=== PATIENT | female | born 1960 | race Caucasian/White ===

== ENCOUNTER 2024-07-02 06:21 | Day surgery (SDC) | payer MEDICARE, SELFPAY ==
[2024-07-02] VITALS (24 sets, daily range): BP systolic 75–128; BP diastolic 47–80; PULSE 52–80; RESP 12–18; TEMP 35.1–37; O2SAT 92–98; BMI 25.9
[2024-07-02] MEDS: ACETAMINOPHEN 500 MG TABLET 1000 MG PO ×3 (07:00→19:18)
[2024-07-02] MEDS: OXYCODONE (CR) 10 MG TAB.ER.12H PO (07:00)
[2024-07-02] MEDS: LACTATED RINGERS 1000 ML 1,000 ML 100 ML IV (07:00)
--- NOTE | 2024-07-02 07:26 | W.PM.H&PU ---
History & Physical Update History & Physical Update H&P Reviewed and patient assessed: No changes noted
--- NOTE | 2024-07-02 07:38 | SUR.PREOP ---
TIME?OUT:?4300 PT/Ani Galindo RN/Dr. Marcelino MDA?VERIFICATION?OF?SURGICAL?SITE right hip,?PROCEDURE,?AND?CONSENT OBTAINED?PRIOR?TO?INVASIVE?PROCEDURE.
[2024-07-02] MEDS: fentaNYL 100 MCG/2 ML inj IVP (07:41)
[2024-07-02] MEDS: MIDAZOLAM HCL 1 MG/ML inj IVP (07:41)
--- NOTE | 2024-07-02 07:45 | CRLHL7_ITS ---
For Patients: As a result of the Cures Act, medical imaging exams and procedure reports are released immediately into your electronic medical record. You may view this report before your referring provider. If you have questions, please contact your health care provider. Indication: Hip replacement surgery Technique: AP hip fluoroscopic images. Fluoroscopy time 48.3 seconds. Findings/Impression: Hardware from a right total hip arthroplasty is in satisfactory position. Dictated by Puneet Adams MD @ 07/02/2024 9:53:40 AM (Electronically Signed)
--- NOTE | 2024-07-02 08:23 | CRLHL7_ITS ---
For Patients: As a result of the Cures Act, medical imaging exams and procedure reports are released immediately into your electronic medical record. You may view this report before your referring provider. If you have questions, please contact your health care provider. Indication: Postop Technique: AP hip centered pelvis and lateral view right hip Findings/Impression: Hardware from a right total hip arthroplasty is in satisfactory position. Bone alignment is normal. No sign of acute fracture. Postop changes are within normal limits. Dictated by Puneet Adams MD @ 07/02/2024 11:16:51 AM (Electronically Signed)
[2024-07-02] MEDS: CEFAZOLIN 2 GM in 0.9 % SODIUM CHLORIDE Mini-bag 100 ML IVPB (08:24)
[2024-07-02] MEDS: TRANEXAMIC ACID 100 MG/ML INJ 1000 MG IV (08:29)
--- NOTE | 2024-07-02 10:27 | P.ANES_ITS ---
Anesthesia Charges Start Date/Time Anesthesia Start Date: 07/02/24 Anesthesia Start Time: 08:00 Stop Date/Time Anesthesia Stop Date: 07/02/24 Anesthesia Stop Time: 10:23 Coding CPT Codes CPT Codes: ANESTH HIP ARTHROPLASTY - 10624 ([id number]) P3 - PATIENT W/SEVERE SYS DISEASE, QK - SECURITIES ATTORNEY 2-4 CNCRNT ANES PROC, QX - USED CAR LOT PORTER SVC W/ MD MED DIRECTION
--- NOTE | 2024-07-02 10:27 | W.ANESCHARGE ---
Anesthesia Charges Start Date/Time Anesthesia Start Date: 07/02/24 Anesthesia Start Time: 08:00 Stop Date/Time Anesthesia Stop Date: 07/02/24 Anesthesia Stop Time: 10:23 Coding CPT Codes CPT Codes: ANESTH HIP ARTHROPLASTY - 27967 ([id number]) P3 - PATIENT W/SEVERE SYS DISEASE, QK - WINDOWS PHONE DEVELOPER 2-4 CNCRNT ANES PROC, QX - TECHNICAL RESEARCH SCIENTIST SVC W/ MD MED DIRECTION
[2024-07-02] MEDS: PHENYLEPHRINE 100 MCG/ML SYRINGE IVP (10:32)
--- NOTE | 2024-07-02 11:13 | P.NB_ITS ---
Nerve Block Nerve Block Time Seen by Provider: 07:44 Date Seen: 07/02/24 Type of block requested by surgeon for post-operative analgesia: ELYSSA/LFCN Side: right Time out performed: Yes Verification of patient name: Yes Verification of date of : Yes Site marking: site marked Name of person performing procedure: Marcelino Continuous monitoring Was continuous monitoring of O2 sat, B/P, quality assurance monitor body, recorded every 15 minutes?: Yes Procedure Checklist: sterile prep, needles and gloves Ultrasound guided. Images saved: Yes Medications given in 5ml increments after negative aspiration: Ropivicaine %: 0.5 mL: 30 Needle gauge: 20 Precedex (mcg): 25 Patient tolerated procedure well: Yes Additional comments: Needle noted below psoas tendon needle noted adjacent to LFCN Block Charges Block Charge (with Pro Fee): Other Periph Nerve Block Use of Ultrasound Machine for Block: Yes- US Guidance/pain block
--- NOTE | 2024-07-02 11:14 | P.ANES_ITS ---
Anesthesia Charges Start Date/Time Anesthesia Start Date: 07/02/24 Anesthesia Start Time: 08:00 Stop Date/Time Anesthesia Stop Date: 07/02/24 Anesthesia Stop Time: 10:23 Coding CPT Codes CPT Codes: ANESTH HIP ARTHROPLASTY - 96679 ([id number]) QK - NET TRAINER 2-4 CNCRNT ANES PROC, QX - MEDICAL SCHEDULER SVC W/ MD MED DIRECTION, P3 - PATIENT W/SEVERE SYS DISEASE
--- NOTE | 2024-07-02 11:14 | W.ANESCHARGE ---
Anesthesia Charges Start Date/Time Anesthesia Start Date: 07/02/24 Anesthesia Start Time: 08:00 Stop Date/Time Anesthesia Stop Date: 07/02/24 Anesthesia Stop Time: 10:23 Coding CPT Codes CPT Codes: ANESTH HIP ARTHROPLASTY - 47023 ([id number]) QK - PONY ROLL FINISHER 2-4 CNCRNT ANES PROC, QX - GROUP SEGMENT CONSULTANT SVC W/ MD MED DIRECTION, P3 - PATIENT W/SEVERE SYS DISEASE
--- NOTE | 2024-07-02 12:02 | SUR.OPER ---
post surgical procedure noted bruising on left thigh on the edges where cautery pad was placed. PA and charge nurse notified.
--- NOTE | 2024-07-02 12:16 | PM.IMCN1 ---
Date of Consult Patient: Other Consult date: 07/02/24 Requesting Physician: Orthopedics Primary Care Provider: Not a Local Provider Consult Narrative Narrative: Micaela De La Garza is a 63 year old female with osteoarthritis of the hip, fibromyalgia, emphysema, secondary hyperparathyroidism, obstructive sleep apnea admitted in [facility] for right total hip arthroplasty. Procedure performed by Dr. Price. No operative complications. Postoperatively she reports doing well. No significant pain. No nausea. Preoperatively she said she was doing well. No new recent problems illnesses or injuries. She reports ongoing chronic generalized pain which is been diagnosed by alborn as fibromyalgia. She has ongoing evaluation treatment of that. She has sleep apnea but finds she sleeps better without CPAP. She has emphysema from cigarette smoking but has found inhaler therapy to be of no benefit. She quit smoking November 2023 She has a history of kidney stones that are probably related to secondary renal hyperparathyroidism. She is on no treatment for that. No previous history of problems with surgery, anesthesia, bleeding, thrombophilia, infection. [facility] Medical History (Updated 07/02/24 @ 12:55 by Reno Salcedo MD) Hx of renal calculi ?Z87.442 - Personal history of urinary calculi (ICD-10) TIA (transient ischemic attack) ?G45.9 - Transient cerebral ischemic attack, unspecified (ICD-10) Osteopenia ?M85.80 - Other specified disorders of bone density and structure, unspecified site (ICD-10) Osteoporosis ?M81.0 - Age-related osteoporosis without current pathological fracture (ICD-10) Peripheral neuropathy ?G62.9 - Polyneuropathy, unspecified (ICD-10) AIDA (obstructive sleep apnea) ?G47.33 - Obstructive sleep apnea (adult) (pediatric) (ICD-10) Migraine headache ?G43.909 - Migraine, unspecified, not intractable, without status migrainosus (ICD-10) Sudden right hearing loss ?H91.21 - Sudden idiopathic hearing loss, right ear (ICD-10) IBS (irritable bowel syndrome) ?K58.9 - Irritable bowel syndrome, unspecified (ICD-10) Hyperlipidemia ?E78.5 - Hyperlipidemia, unspecified (ICD-10) Chronic fatigue ?R53.82 - Chronic fatigue, unspecified (ICD-10) Dry eye syndrome, bilateral ?H04.123 - Dry eye syndrome of bilateral lacrimal glands (ICD-10) Degeneration macular ?H35.30 - Unspecified macular degeneration (ICD-10) Concussion without loss of consciousness ?S06.0X0A - Concussion without loss of consciousness, initial encounter (ICD-10) COPD (chronic obstructive pulmonary disease) ?J44.9 - Chronic obstructive pulmonary disease, unspecified (ICD-10) Generalized anxiety disorder ?F41.1 - Generalized anxiety disorder (ICD-10) Personal history of alcoholism ?F10.21 - Alcohol dependence, in remission (ICD-10) Colon polyp (03/2017) ?K63.5 - Polyp of colon (ICD-10) Allergic rhinitis ?J30.9 - Allergic rhinitis, unspecified (ICD-10) Hyperparathyroidism, secondary renal ?N25.81 - Secondary hyperparathyroidism of renal origin (ICD-10) TBI (traumatic brain injury) (1975) ?S06.9XAA - Unspecified intracranial injury with loss of consciousness status unknown, initial encounter (ICD-10) Hearing loss, right ?H91.91 - Unspecified hearing loss, right ear (ICD-10) Hypercalciuria ?R82.994 - Hypercalciuria (ICD-10) Centrilobular emphysema ?J43.2 - Centrilobular emphysema (ICD-10) Sleep apnea ?G47.30 - Sleep apnea, unspecified (ICD-10) Fibromyalgia ?M79.7 - Fibromyalgia (ICD-10) Surgical History (Updated 07/02/24 @ 12:53 by Reno Salcedo MD) S/P total right hip arthroplasty ?Z96.641 - Presence of right artificial hip joint (ICD-10) History of tubal ligation (~1989) ?Z98.51 - Tubal ligation status (ICD-10) History of sinus surgery (1981) ?Z98.890 - Other specified postprocedural states (ICD-10) History of hand surgery (~09/2021) ?Z98.890 - Other specified postprocedural states (ICD-10) History of kidney surgery (~05/2021) ?Z98.890 - Other specified postprocedural states (ICD-10) Family History Maternal Grandfather Stroke Uncle Lung cancer Aunt Breast cancer Maternal Grandmother Pancreatic cancer Diabetes Social History (Updated 07/02/24 @ 12:51 by Reno Salcedo MD) Narrative: She lives in [place] with her . She has 3 or 4 steps to get into her house but then lives on 1 level. She occasionally drinks alcohol. former smoker-quit 12/02/2023. is healthcare power of title attorney. Code status is full. What is your current living situation?: I presently have a place to live Problems where you live: no known problems In the past 12 months, utilities in danger of being shut off: no In past 12 months, lack of transportation kept you from medical appts, meetings, work, or getting things needed for daily living: no In the past 12 mos, have been you worried that your food would run out before you had money to buy more?: never true In the past 12 mos, the food you bought just didn't last and you didn't have money to buy more?: never true Smoking Status: Former smoker What tobacco products do you use: cigarettes Smoking quit date/years: <= 15 years ago Do you use any of these nicotine containing products: None How often do you have a drink containing alcohol: monthly or less How many standard drinks containing alcohol do you have on a typical day: 1 or 2 How often do you have six or more drinks on one occasion: Never AUDIT-C Alcohol total score: 1 Non-prescribed substance use: denies use Caffeine: Yes (1 cup/day) How often does anyone, including family, friends and others, physically hurt you: never How often does anyone, including family, friends and others, insult or talk down to you: never How often does anyone, including family, friends and others, threaten you with harm: never How often does anyone, including family, friends and others, scream or curse at you: never service: No Meds Home Medications and Allergies Home Medications ?Medication ?Instructions ?Recorded ?Confirmed ?Type estradiol 0.01% (0.1 mg/gram) 0.25 appful vaginal 02/21/24 02/21/24 History vaginal cream Allergies Allergy/AdvReac Type Severity Reaction Status Date / Time ciprofloxacin AdvReac Hives Verified 07/02/24 06:37 nitrofurantoin AdvReac Hives Verified 07/02/24 06:37 Exam Narrative: Exam Narrative: She is alert and appears in no distress. She gives her own history. Oropharynx is normal. Neck is supple without mass or adenopathy. Respirations are clear to auscultation. She has somewhat diminished breath sounds. Cardiovascular: S1, S2, regular rate and rhythm. No murmur gallop or rub. Abdomen: Bowel sounds active. Abdomen is soft without tenderness or mass. right Hip is with mild swelling, no bruising or erythema. She has intact pulses and sensation distally. No edema Const: Vital Signs, click to edit/add: Vital Signs - 24 hr 07/02/24 07:16 07/02/24 07:40 07/02/24 07:45 Temperature 97.5 F L Pulse Rate 76 63 72 Respiratory Rate 16 16 14 Blood Pressure 123/80 128/69 101/69 Pulse Oximetry 95 98 97 Oxygen Delivery Me thod Room Air Nasal Cannula Nasal Cannula Oxygen Flow Rate 3 3 07/02/24 07:50 07/02/24 10:18 07/02/24 10:23 Temperature 97.5 F L 97.9 F Pulse Rate 60 57 L 52 L Respiratory Rate 14 14 14 Blood Pressure 86/58 L 82/48 L 77/47 L Pulse Oximetry 92 92 94 Oxygen Delivery Me thod Nasal Cannula Room Air Room Air Oxygen Flow Rate 3 07/02/24 10:28 07/02/24 10:32 07/02/24 10:40 Temperature Pulse Rate 55 L 58 L 58 L Respiratory Rate 14 12 14 Blood Pressure 75/54 L 86/63 L 92/59 L Pulse Oximetry 96 97 97 Oxygen Delivery Me thod Room Air Room Air Room Air Oxygen Flow Rate 07/02/24 10:44 07/02/24 10:50 Temperature Pulse Rate 62 59 L Respiratory Rate 12 12 Blood Pressure 86/59 L 91/58 L Pulse Oximetry 97 97 Oxygen Delivery Me thod Room Air Room Air Oxygen Flow Rate Documenting provider has reviewed patient's vital signs: yes Assessment and Plan Assessment and plan (1) S/P total right hip arthroplasty: Problem comment: Dr. Price, 07/02/2024, no complications. Plan routine postoperative therapy and pain management Status: Acute (2) Osteoarthritis of right hip: Problem comment: moderate-severe Status: Acute (3) Fibromyalgia: Problem comment: Unclear how much pain she is having for this. Not currently on medications for this. Status: Acute (4) Sleep apnea: Problem comment: Does not use CPAP. Will monitor for hypoxia with opioid pain medication Status: Acute (5) Centrilobular emphysema: Problem comment: Currently reports being minimally symptomatic. Evaluate for postoperative respiratory problems. Status: Acute (6) Hypotension: Problem comment: Has had some below blood pressure postoperatively. She receive some phenylephrine and fluids. Currently blood pressure is 90s over 60s. Continue to monitor Status: Acute Plan Patient is admitted the hospital for postoperative management of hip replacement surgery with pain management, therapy, respiratory monitoring with AIDA and emphysema. Total Time Spent Total Time Spent: Total time spent is 45 minutes in review of outside records, coordination of care, discussion with patient and about ongoing management of hip surgery, pain, complications and monitoring managing her chronic medical problems.
[2024-07-02] MEDS: LACTATED RINGERS 500 ML 500 ML IV (13:25)
[2024-07-02 15:04] LABS: Hemoglobin* 11.3 gm/dL (12.0-16.0)
[2024-07-02] MEDS: CEFAZOLIN 1 GM in 0.9 % SODIUM CHLORIDE Mini-bag 100 ML IVPB ×2 (15:15→22:29)
[2024-07-02] MEDS: OXYCODONE 5 MG TABLET PO ×2 (21:02→23:09)
[2024-07-02] MEDS: SENNOSIDES 1 TAB TABLET 2 TAB PO (21:03)
[2024-07-03] MEDS: ACETAMINOPHEN 500 MG TABLET 1000 MG PO ×2 (01:01→07:01)
[2024-07-03 01:04] VITALS: BP 104/65; PULSE 78; RESP 16; TEMP 37.1; O2SAT 95
[2024-07-03] MEDS: hydrOXYzine pamoate 25 MG CAPSULE PO ×2 (01:22→06:45)
[2024-07-03 01:23] VITALS: RESP 16; O2SAT 95
[2024-07-03 04:10] VITALS: BP 103/61; PULSE 87; RESP 16; TEMP 37.1; O2SAT 94
[2024-07-03 06:34] VITALS: BP 119/76; PULSE 80; RESP 18; O2SAT 98
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
[2024-07-03 07:00] VITALS: BP 112/70; PULSE 80; PULSE 82; RESP 16; TEMP 37; O2SAT 93
[2024-07-03 07:26] LABS: Basophils Absolute Auto 0.01 K/uL (0.00-0.30); Basophils Percent Auto 0.1 % (0.0-3.0); Eosinophils Absolute Auto 0.02 K/uL (0.00-0.50); Eosinophils Percent Auto 0.2 % (0.0-7.0); Hematocrit 33.8 % (33.0-51.0); Hemoglobin* 11.1 gm/dL (12.0-16.0); Immature Granulocytes Abs Auto 0.02 K/uL (0.00-0.30); Immature Granulocytes Pct Auto 0.2 %; Lymphocytes Percent Auto 18.3 % (20-44); Mean Corpuscular HGB Conc 33 gm/dL (32-36); Mean Corpuscular Hemoglobin 33 pg (26-34); Mean Corpuscular Volume 99 fL (80-100); Monocytes Percent Auto 9.7 % (0.0-11.0); Neutrophils Absolute Auto 6.55 K/uL (1.7-7.0); Neutrophils Percent Auto 71.5 % (42.0-72.0); Platelet Count* 230 K/uL (140-440); RDW Coefficient of Variation % 12.4 % (11.5-15.5); Red Blood Count 3.42 m/uL (4.00-5.20); White Blood Count* 9.17 K/uL (4.50-11.00)
[2024-07-03 07:28] LABS: Slide Review Reflex No
[2024-07-03 07:42] LABS: Potassium* 4.2 mmol/L (3.6-5.1); Sodium* 134 mmol/L (135-149)
[2024-07-03 07:45] LABS: Blood Urea Nitrogen* 9 mg/dL (7-30); Creatinine* 0.6 mg/dL (0.5-1.5); Est. Creatinine Clearance* 50.47; Estimated Glomerular Filt Rate 100 ml/min
[2024-07-03 07:58] LABS: Troponin I* 0.01 ng/mL (0.01-0.04)
--- NOTE | 2024-07-03 08:38 | P.ORPRC_ITS ---
Procedure Note Date of procedure: 07/02/24 Procedure: PREOPERATIVE DIAGNOSIS: 1. Right hip osteoarthritis, severe, primary POSTOPERATIVE DIAGNOSIS: 1. Right hip osteoarthritis, severe, primary PROCEDURE: 1. Right total hip arthroplasty-anterior approach 2. [id number] - intraoperative fluoroscopy up to 1 hour. SURGEON: Venancio Price MD. MITOCHONDRIAL DISORDERS COUNSELOR: Frankie Rose PA-C; RANDELL Baez - Of note, a skilled bankruptcy legal assistant was critical for this case to aid in patient positioning, tissue retraction, limb manipulation/positioning, and closure. ANESTHESIA: Spinal anesthetic EBL: 200 mL IMPLANTS: DePuy J&J uncemented total hip [place] cup size 52, hole eliminator, +4 neutral liner Actis stem, standard offset, size 4 -2 mm ceramic 36 mm head COMPLICATIONS: None evident INDICATIONS: The patient is a pleasant 63-year-old female who has experienced severe right hip pain and difficulty bearing weight. Workup included x-rays which revealed severe osteoarthrosis in the hip. Given the deformity, the dysfunction, and the pain, as well as the failure of nonoperative management, recommendation was made for surgery. FINDINGS: Full-thickness chondral loss diffusely throughout the femoral head and acetabulum. Perimeter osteophytes around the femoral head/neck junction. Moderate effusion upon entering the joint. Generalized synovitis with erythematous synovium noted. DESCRIPTION OF PROCEDURE: Following a thorough discussion of risks, benefits, and alternatives consent was obtained and the right hip was marked. The patient was brought to the operating room and placed supine on the operating table. Induction of anesthesia was undertaken. 1 g IV Ancef and 1 g tranexamic acid was administered within 1 hr of incision preoperatively. Proper time-out was performed identifying proper patient, site, procedure. The operative extremity was prepped and draped in the appropriate sterile fashion using ChloraPrep after the patient was positioned on the [place] table with head in neutral alignment and all bony prominences well padded. C-arm fluoroscopic imaging was utilized to confirm proper pelvis rotation and position, and to get true AP films of both the contralateral left, and the affected right hip. This is for comparison. A longitudinal incision was made starting approximately 1 cm distal to the ASIS, and 3-4 cm lateral. The incision was extended distally aiming toward the lateral border the patella. Sharp incision through skin and bovie cautery through the subcutaneous tissue allowed identification of the TFL fascia. This was sharply divided, and the fascia bluntly released from the muscle fibers as we dissected medial. Upon coming to the medial border, we were able to retract the TFL laterally, and penetrated the deeper fascia and identify the crossing circumflex vessels. These were ligated/cauterized. The rectus was elevated from the capsule, and retractors placed laterally and medially along the femoral neck to help with visualization of the capsule. We then performed an inverted T capsulotomy. The capsule was tagged for later repair. Retractors were placed inside the capsule. The femoral neck was visualized after releasing medially down to the lesser trochanter, along the saddle laterally, and up onto the acetabulum. The femoral neck cut was made in line with our preoperative templating. The head was removed in a single piece, and sized. We turned our attention to acetabular preparation. Initially, the labrum was resected from around the perimeter, the pulvinar was excised, allowing us to visualize the false wall. We started the reaming with a 43 mm reamer. This was medialized down to the true wall. We then enlarged our reamers sequentially up to one size less than the selected cup size. We trialed at the same size and found it to have an excellent fit. The selected cup was then opened, inserted, and impacted in line with the goal of 40? of abduction, and 20-25? of anteversion. This was confirmed on C-arm fluoroscopic imaging to be in the appropriate/goal position. Once the cup was placed we placed a hole eliminator and a liner consistent with preop planning. Attention was turned to the femoral preparation. The limb was extended, externally rotated, and adducted. The posteromedial capsule was released, as retractors were placed allowing excellent access to the proximal femur. Initially a box maker wood was followed by canal finder followed by various broaches. We broached sequentially up to the size noted above, found it to have excellent rotational control, and trialing various heads and necks, revealed that appropriate neck offset, and the above noted head size provided the grea test stability, and samaritan of length, and offset. C-arm fluoroscopic imaging confirmed position of the stem, as well as leg lengths, which were compared with the pre procedure all fluoroscopic images. Trial implants were removed, the real femoral stem inserted, as was the appropriate head. After reducing, the leg was placed through range of motion and stability was confirmed anterior, posterior, and lateral. A 3 min Betadine soak was then performed, and thorough irrigation with normal saline followed. Closure of the capsule was performed with #1 PDS. Bleeding was confirmed to be controlled at this stage, and the TFL fascia was closed with #0 strata fix. Subcutaneous, and subcuticular closure was performed with 2-0 Vicryl and 4-0 Monocryl, respectively. Dressings were applied, and the patient was awoken from anesthesia and transferred the PACU in stable condition. A skilled bankruptcy legal assistant was critical for this case to aid in patient positioning, tissue retraction, acetabular and proximal femoral exposure, limb manipulation/positioning, dislocation/relocation, patient safety, and closure. PLAN: 1. Weight bear as tolerated operative extremity. 2. 23 hr perioperative antibiotics. 3. Ice. 4. PT/OT consults for ambulation assistance/mobility education. 5. Social work consult for discharge planning. 6. DVT prophylaxis with at SCDs and Xarelto x5 days followed by aspirin for a total of 1 month..
[2024-07-03] MEDS: RIVAROXABAN 10 MG TABLET PO (09:08)
[2024-07-03] MEDS: SENNOSIDES 1 TAB TABLET 2 TAB PO (09:08)
--- NOTE | 2024-07-03 09:42 | P.ORPN_ITS ---
Subjective Subjective Date Seen: 07/03/24 Principal diagnosis: Status postop day 1, right total hip arthroplasty - anterior approach Interval history: Patient reports doing well. Notice some left-sided chest discomfort radiating to her back early this morning. She received workup. Negative for cardiac related issue. Pain resolved on its own, without recurrence. Pain managed with scheduled and PRN medications, ice. DVT prophylaxis: Rivaroxaban, SCDs, walk ing. Denies fevers, chills, aches, N/V, CP, SOB/DAWSON, or lightheadedness. Ortho Exam Narrative Exam Narrative: -Patient appears comfortable in recliner; no apparent acute distress -Alert and oriented times 3 -Operative hip swollen; soft tissues supple; no obvious erythema. Ecchymosis minimal. Warmth appropriate -Surgical dressing clean, dry, intact; no obvious drainage, no erythematous streaking peripheral to the bandage -Bilateral calves soft and supple; no significant swelling, edema, tenderness, erythema, discoloration, warmth, or palpable cords -2+ DP/PT pulses, intact dermatomes and myotomes distally (5/5 strength). No numbness about the lateral femoral cutaneous nerve distribution. Const Vital Signs, click to edit/add: Vital Signs - 24 hr 07/02/24 10:18 07/02/24 10:23 07/02/24 10:28 Temperature 97.9 F Pulse Rate 57 L 52 L 55 L Pulse Rate [Pulse Oximeter] Pulse Rate [Right Dorsalis Pedis] Respiratory Rate 14 14 14 Blood Pressure 82/48 L 77/47 L 75/54 L Blood Pressure [Left Arm] Blood Pressure [Right Arm] Pulse Oximetry 92 94 96 Oxygen Delivery Method Room Air Room Air Room Air 07/02/24 10:32 07/02/24 10:40 07/02/24 10:44 Temperature Pulse Rate 58 L 58 L 62 Pulse Rate [Pulse Oximeter] Pulse Rate [Right Dorsalis Pedis] Respiratory Rate 12 14 12 Blood Pressure 86/63 L 92/59 L 86/59 L Blood Pressure [Left Arm] Blood Pressure [Right Arm] Pulse Oximetry 97 97 97 Oxygen Delivery Method Room Air Room Air Room Air 07/02/24 10:50 07/02/24 11:03 07/02/24 11:03 Temperature 95.2 F L Pulse Rate 59 L 65 Pulse Rate [Pulse Oximeter] Pulse Rate [Right Dorsalis Pedis] Respiratory Rate 12 16 16 Blood Pressure 91/58 L 90/66 Blood Pressure [Left Arm] Blood Pressure [Right Arm] Pulse Oximetry 97 97 97 Oxygen Delivery Method Room Air Room Air Room Air 07/02/24 11:15 07/02/24 11:30 07/02/24 11:45 Temperature 96.2 F L Pulse Rate 62 64 61 Pulse Rate [Pulse Oximeter] Pulse Rate [Right Dorsalis Pedis] Respiratory Rate 16 16 16 Blood Pressure 95/68 94/67 92/69 Blood Pressure [Left Arm] Blood Pressure [Right Arm] Pulse Oximetry 98 96 98 Oxygen Delivery Method Room Air Room Air Room Air 07/02/24 12:00 07/02/24 12:30 07/02/24 13:00 Temperature 96.6 F L 97.0 F L Pulse Rate 66 62 66 Pulse Rate [Pulse Oximeter] Pulse Rate [Right Dorsalis Pedis] Respiratory Rate 16 16 18 Blood Pressure 92/64 91/60 89/62 L Blood Pressure [Left Arm] Blood Pressure [Right Arm] Pulse Oximetry 96 97 98 Oxygen Delivery Method Room Air Room Air Room Air 07/02/24 14:00 07/02/24 15:00 07/02/24 15:00 Temperature 97.3 F L Pulse Rate 65 61 Pulse Rate [Pulse Oximeter] Pulse Rate [Right Dorsalis Pedis] Respiratory Rate 16 16 16 Blood Pressure 92/64 115/50 L Blood Pressure [Left Arm] Blood Pressure [Right Arm] Pulse Oximetry 98 96 96 Oxygen Delivery Method Room Air Room Air Room Air 07/02/24 16:00 07/02/24 17:00 07/02/24 19:00 Temperature 97.5 F L 98.6 F Pulse Rate 67 64 Pulse Rate [Pulse Oximeter] Pulse Rate [Right Dorsalis Pedis] 80 Respiratory Rate 16 16 18 Blood Pressure 107/65 119/75 Blood Pressure [Left Arm] Blood Pressure [Right Arm] 111/62 Pulse Oximetry 95 96 94 Oxygen Delivery Method Room Air Room Air Room Air 07/02/24 23:00 07/03/24 01:04 07/03/24 01:23 Temperature 98.4 F 98.8 F Pulse Rate Pulse Rate [Pulse Oximeter] 74 78 Pulse Rate [Right Dorsalis Pedis] Respiratory Rate 18 16 16 Blood Pressure Blood Pressure [Left Arm] Blood Pressure [Right Arm] 103/58 L 104/65 Pulse Oximetry 96 95 95 Oxygen Delivery Method Room Air Room Air Room Air 07/03/24 04:10 07/03/24 06:34 07/03/24 07:00 Temperature 98.8 F Pulse Rate Pulse Rate [Pulse Oximeter] 87 80 80 Pulse Rate [Right Dorsalis Pedis] Respiratory Rate 16 18 16 Blood Pressure Blood Pressure [Left Arm] Blood Pressure [Right Arm] 103/61 119/76 Pulse Oximetry 94 98 Oxygen Delivery Method Room Air 07/03/24 07:00 07/03/24 07:00 Temperature 98.6 F Pulse Rate Pulse Rate [Pulse Oximeter] 82 Pulse Rate [Right Dorsalis Pedis] Respiratory Rate 16 16 Blood Pressure Blood Pressure [Left Arm] 112/70 Blood Pressure [Right Arm] Pulse Oximetry 93 93 Oxygen Delivery Method Room Air Room Air Assessment and Plan Assessment and plan (1) S/P total right hip arthroplasty: Problem details: Dr. Price, 07/02/2024, no complications. Plan routine postoperative therapy and pain management Status: Acute (2) Osteoarthritis of right hip: Problem details: moderate-severe Status: Acute (3) Fibromyalgia: Problem details: Unclear how much pain she is having for this. Not currently on medications for this. Status: Acute (4) Sleep apnea: Problem details: Does not use CPAP. Will monitor for hypoxia with opioid pain medication Status: Acute (5) Centrilobular emphysema: Problem details: Currently reports being minimally symptomatic. Evaluate for postoperative respiratory problems. Status: Acute (6) Hypotension: Problem details: Has had some below blood pressure postoperatively. She receive some phenylephrine and fluids. Currently blood pressure is 90s over 60s. Continue to monitor Status: Acute Plan - Complete 23 hour perioperative antibiotics. - PT/OT consult for education and assistance. - Social work consult for discharge planning - Prescribed analgesics as needed - DVT prophylaxis: Rivaroxaban, walking, and SCDs - Anticipation is for discharge to home with today 07/03/2024 if the patient remains medically stable, pain is controlled, and they are safe with mobilization.
[2024-07-03 09:50] VITALS: BP 109/67; PULSE 91; PULSE 94; RESP 16
--- NOTE | 2024-07-03 09:55 | CRLHL7_ITS ---
For Patients: As a result of the Century Cures Act, medical imaging exams and procedure reports are released immediately into your electronic medical record. You may view this report before your referring provider. If you have questions, please contact your health care provider. INDICATION: Chest pain. TECHNIQUE: Chest 2 views. COMPARISON: None. FINDINGS/ IMPRESSION: No focal consolidation, effusion or pneumothorax. Cardiac size is within normal limits without pulmonary edema. Scattered degenerative changes of the spine. Dictated by Emily North MD @ 07/03/2024 10:28:43 AM (Electronically Signed)
[2024-07-03 11:08] LABS: Troponin I* < 0.01 ng/mL (0.01-0.04)
--- NOTE | 2024-07-03 11:33 | PC.SOCIAL ---
Discharge planning: SW met with patient to see if there are any needs/concerns going home. Patient states they have none. SW to assist if needs arise.
--- NOTE | 2024-07-03 11:46 | PC.NURSE ---
Discharge: Pleasant and cooperative. VSS. Patient on RA. tolerating a reg diet. Patient's OP site is C/D/I. Patient using active ice. denies N/V/SOB. Patients IV removed intact. Discharged today at 1144 to home accompanied by spouse. Discharge instructions given and signed. patient verbalized understanding of instructions. Belongings sheet signed.
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
== END 2024-07-03 11:44 | disposition home or self-care (01) ==
LOC: OR 06:24 → MEDSURG 06:25
PROVIDERS: Family Medicine; Visit Provider Orthopaedic Surgery Sports Medicine
PROC: (CPT 27130; principal; 2024-07-02 07:45)
DX: M16.11 Unilateral primary osteoarthritis, right hip (principal); G89.18 Other acute postprocedural pain; I95.81 Postprocedural hypotension; R07.9 Chest pain, unspecified; M79.7 Fibromyalgia; J43.2 Centrilobular emphysema; G47.33 Obstructive sleep apnea (adult) (pediatric); N25.81 Secondary hyperparathyroidism of renal origin; Z87.891 Personal history of nicotine dependence
CPT/HCPCS: 27130; 01214; 36415; 64450; 71046; 73501; 76000; 76942; 82565; 84132; 84295; 84484; 84520; 85018; 85025; 86850; 86900; 86901; 93005; 97110; 97116; 97162; 97165; 97530; 97535; A9270; C1776; J0690; J2250; J2795; J3010; J7120

== ENCOUNTER 2024-08-07 15:00 | Outpatient (RCR) | payer MEDICARE, SELFPAY ==
--- NOTE | 2024-06-26 15:42 | PT.OPEX ---
PT [place] Outpatient Eval PT [facility] Outpatient Eval Start: 06/26/24 12:43 Freq: Status: Active Protocol: Document 06/26/24 14:53 HLA (Rec: 06/26/24 15:33 HLA [id number]) E-signed By Eloina Santo, PT, DPT Physical Therapy Outpatient Evaluation Insurance Information Insurance Name [employer] Medical Diagnosis R ant JULIETA Treating Diagnosis pain, weakness R hip, locks and catches. Is undergoing L JULIETA 07/02/24 Referring MD Price Subjective Preferred Name [place] Subjective R hip catches, locks, limits mobility so she has chosen to undergo an ant JULIETA. Pt is CACHIL DEHE at baseline, impaired hearing R ear, pre-diabetes, fibromyalgia, emphysema, lung cysts due to previous smoking, sleep apnea, chronic fatigue syndrome, osteoporosis, arthritis, and allergy to ciproflaxcin. She has hx of neck pain, uses neck traction at home, not able to communicate her dx for this. She is ind amb no device, drives. She is retired, lives with spouse in a 1 story home, 4 step entry in [place]. She is returning to [facility] for PT after surgery. Pain Comments moderate pain R hip preop Date of Last Physician Visit 06/20/24 Date of Surgery (If applicable) 07/02/24 Current Work Status Retired Precautions Treatment Precautions/Contraindications CACHIL DEHE R ear/impaired Weight Bearing Status Weight Bear as Tolerated Therapy Limitations/Systems Review Hearing Objective Range of Motion shldr flex/abd 0-140 wrists/hands WNL L hip WNL R hip flex 0-110, abd 0-30, ER 0-40, IR 0-30 otherwise full B LEs. Strength shldrs 3+/5 otherwise 5/5 UEs. R hip 4/5 flex/abd, ext 4+/5, add 4+/5 knee 5-/5, ankle 5/5 L LE 5/5 Swelling no edema LEs Palpation palpation of R lat hip, R PSIS Balance & Gait gt steady no device, some hip flex noted. Gt limited in distance due to pain R hip Stairs reciprocal. Posture fwd head, slightly rounded shldrs. Sensation/Reflexes denies n/t, intact to light touch LEs, some R hand subjective numbness with hx of carpal tunnel syndrome/neck issues Assessment Assessment/Impression [place] is undergoing R ant JULIETA on 07/02/24. R hip catches, locks , limits mobility so she has chosen to undergo an ant JULIETA. Pt is CACHIL DEHE at baseline, impaired hearing R ear, pre- diabetes, fibromyalgia, emphysema, lung cysts due to previous smoking, sleep apnea, chronic fatigue syndrome, osteoporosis, arthritis, and allergy to ciproflaxcin. She has hx of neck pain, uses neck traction at home, not able to communicate her dx for this. She is ind amb no device, drives. She is retired, lives with spouse in a 1 story home, 4 step entry in [place]. She is returning to [facility] services for PT after surgery. She presents with impaired R hip ROM, impaired strength. Gt is slow, stiff, abducted, some hip flex on R. Pt was instructed in anterior JULIETA ex program (quad sets, glut sets, ham sets, ankle pumps, heel slides, standing hip abduction , and supine lying flat) per protocol to be practiced pre- operatively and for improved learning post-operatively. Pt was instructed in hospital post-op progression in PT, safety, fall prevention. Pt was instructed in positioning in chair, use of ice/polar care, bed, transfer safety, gt safety with walker, stairs, car transfers and outpatient therapy progression. Primary Functional Limitations impaired ROM, impaired strength, impaired amb, difficulty with ADLS, pain R hip Plan of Care Rehabilitation Potential Good Physical Therapy Goals Within this session: Pt will verbalize understanding of pre -op/post-op safety, mobility and exercises with home program issued and pt returning for ongoing therapy after JULIETA replacement. Within 8-10 weeks. 1. Pt will amb level surfaces 20 min without an assistive device and no evidence of limp . 2. Pt will ascend/descend 13 stairs with railing reciprocally, safely and independently for household and community mobility. 3. Pt will demonstrate normal strength of surgical hip to prevent substitution of movement, prevent falls with mobility. 4. Pt will be independent in home ex program to promote strength and mobility and to prevent falls. Coordination/Communication With Referral Source Treatment Plan/Direct Interventions Dry Needling,Gait Training, Heat,Ice/Cold/Vasopneumatic, Iontophoresis,Joint Mobilization,Manual Therapy, Neuromuscular Re-ed,Orthotics/ Braces,Self-Care/Home Management,Therapeutic Activities,Therapeutic Exercises Frequency/Duration 1x preop then weekly x 6-8 weeks Patient Will Be Discharged From Therapy Completion of LTG(s),Skills Plateau,Independent w/HEP, Independently Progressing Evaluation Billing Untimed Code Treatment Minutes 10 PT Eval No Charge No Complexity Low Certification Information Initial Certification Date 06/26/24 Ending Certification Date 09/23/24 Provider Signature Required Yes Provider Signature Shows Agreement With POC & Medical Necessity Physician NPI Number Write NPI# Here Physician Comment/Change : Physician Signature & Date Requested Please Sign/Date Here
--- NOTE | 2024-07-10 15:55 | PT.OPDNX ---
PT [facility] Daily [facility] Daily Note Start: 06/26/24 12:43 Freq: Status: Active Protocol: Document 07/10/24 09:51 HLA (Rec: 07/10/24 15:52 HLA [id number]) E-signed By Eloina Santo, PT, DPT PT OP Daily Progress Note Visit Information Note Type Daily Note Visit Number 2 Insurance Information Recert Due Date 09/23/24 Insurance Name [employer] Medical Diagnosis R ant JULIETA Treating Diagnosis pain, weakness R hip, locks and catches. Is undergoing L JULIETA 07/02/24 Referring MD Price Subjective Preferred Name [place] Subjective Pt reports pain, stiffness R hip, leg is swollen. She is elevating, icing, up with walker every hour. Sleep has been difficult, using her recliner. Doing her ex at home . Pain Comments moderate pain R hip preop Date of Last Physician Visit 06/20/24 Date of Surgery (If applicable) 07/02/24 Precautions Treatment Precautions/Contraindications EGEGIK R ear/impaired Weight Bearing Status Weight Bear as Tolerated Home Exercise Home Exercise Comments Access Code: [email or web address] URL: [email or web address] Date: 07/10/2024 Prepared by: Eloina Santo updated and practiced home program Exercises - Long Sitting Quad Set - 3 x daily - 7 x weekly - 10 reps - 5 sec hold - Long Sitting Ankle Pumps - 3 x daily - 7 x weekly - 10 reps - 5 sec hold - Supine Gluteal Sets - 2 x daily - 5 x weekly - 2 sets - 10 reps - Supine Isometric Hamstring Set - 3 x daily - 7 x weekly - 10 reps - 5 sec hold - Supine Heel Slide - 3 x daily - 7 x weekly - 10 reps - Standing Hip Abduction with Counter Support - 3 x daily - 7 x weekly - 10 reps - Seated March - 1 x daily - 7 x weekly - 1 sets - 10 reps - Seated Forward Bending with PLB - 1 x daily - 7 x weekly - 1 sets - 10 reps - 5-10 hold - Seated Long Arc Quad - 1 x daily - 7 x weekly - 1 sets - 10 reps - 5 hold Objective Other/Pertinent Objective incision clean, scabs entire length, edema around incision consistent with JULIETA 1 week ago . Patient Instructed in Risks/Benefits Yes Therapeutic Exercise Therapeutic Exercise Minutes (minutes) 35 Therapeutic Exercise: To Restore Practiced anterior JULIETA ex Functional Status program (quad sets, glut sets, ham sets, ankle pumps, heel slides, standing hip abduction , and supine lying flat) Added hip rolls legs extended ' windshield wipers' seated HF, seated LAQ, fwd bend x 10. Education provided in safety, fall prevention, walker use, wean off of walker. Access Code: [email or web address] URL: [email or web address] Date: 06/26/2024 Prepared by: Eloina Santo Exercises - Long Sitting Quad Set - 3 x daily - 7 x weekly - 10 reps - 5 sec hold - Long Sitting Ankle Pumps - 3 x daily - 7 x weekly - 10 reps - 5 sec hold - Supine Gluteal Sets - 2 x daily - 5 x weekly - 2 sets - 10 reps - Supine Isometric Hamstring Set - 3 x daily - 7 x weekly - 10 reps - 5 sec hold - Supine Heel Slide - 3 x daily - 7 x weekly - 10 reps - Standing Hip Abduction with Counter Support - 3 x daily - 7 x weekly - 10 reps Therapeutic Activity Therapeutic Activities Comments sit<>supine car transfers sit<>stand Gait & Stair Training Gait Training/Stairs Minutes (minutes) 10 Gait & Stair Training Comments Pt arrives with ww, vc for hip ext and heel toe gt, lessening support with walker Worked on gt along railing 10 feet x 3 L UE, sba Amb instructed with cane 100 feet x 2, sba, vc sequencing and instructed in progressing gt at home Amb 50 feet x1 no device sba, mildly antalgic L LE Pt advised on how to wean off of walker to cane. Self Care Management Training Self Care Management Training bathing and dressing educated Treatment Minutes Untimed Code Treatment Minutes 10 Timed Code Treatment Minutes 45 Total Treatment Time 55 Billing Units Gait Training/Stairs Units 1 Therapeutic Exercise Units 2 Re-Evaluation Units 1 Assessment/Impression Assessment/Impression [place] underwent R ant JULIETA on 07/02. At baseline she is ind amb no device, drives. She is retired, lives with spouse in a 1 story home, 4 step entry in [place]. She is returning to [facility] to [facility] for PT after her surgery. Pt arrives using ww, some hip flex, stiffness, instructed in gt pee and posture. Practiced gt along railing and with cane, instructed in progression off of walker. ` She presents with impaired R hip ROM, impaired strength. Gt is slow, stiff, abducted, some hip flex on R. Pt was instructed in anterior JULIETA ex program (quad sets, glut sets, ham sets, ankle pumps, heel slides, standing hip abduction , and supine lying flat) per protocol to be practiced pre- operatively and for improved learning post-operatively. Pt was instructed in hospital post-op progression in PT, safety, fall prevention. Pt was instructed in positioning in chair, use of ice/polar care, bed, transfer safety, gt safety with walker, stairs, car transfers and outpatient therapy progression. Practiced her JULIETA ex, pt weak, assist for HS. Added seated fwd bend, LAQ, HF and hip rolls/ER-IR with legs extended. Education provided in activity level for home, monitoring her fibromyalgia and chronic fatigue sx. Pt with weakness, impaired ROM, impaired amb and difficulty with ADLs post JULIETA . She will benefit from weekly PT to return to ind amb community distances, return to leisure activities safely and independently. Primary Functional Limitations impaired ROM, impaired strength, impaired amb, difficulty with ADLS, pain R hip Plan of Care Physical Therapy Goals Within 8-10 weeks. 1. Pt will amb level surfaces 20 min without an assistive device and no evidence of limp . 2. Pt will ascend/descend 13 stairs with railing reciprocally, safely and independently for household and community mobility. 3. Pt will demonstrate normal strength of surgical hip to prevent substitution of movement, prevent falls with mobility. 4. Pt will be independent in home ex program to promote strength and mobility and to prevent falls. Equipment Information Equipment Information walker at home, 2 canes
== END 2024-08-07 15:55 | disposition home or self-care (01) ==
PROVIDERS: Visit Provider Orthopaedic Surgery Sports Medicine
DX: M16.11 Unilateral primary osteoarthritis, right hip (principal); Z96.641 Presence of right artificial hip joint; Z51.89 Encounter for other specified aftercare
CPT/HCPCS: 97110; 97116; 97161; 97164